=== PATIENT | male | born 1990 | race Caucasian/White ===

== ENCOUNTER 2020-10-14 21:41 | Emergency (ER) | payer BC, SELFPAY ==
[2020-10-14 21:57] VITALS: BP 111/73; BP 150/90; PULSE 118; PULSE 96; RESP 18; TEMP 36.8; O2SAT 99; BMI 26.3
--- NOTE | 2020-10-14 22:55 | ED.GENADULT ---
HPI - General Adult General Chief complaint: General Medical Stated complaint: TACHY Time Seen by Provider: 10/14/20 22:42 Source: patient Mode of arrival: ambulatory Limitations: no limitations History of Present Illness HPI narrative: Patient is a 30-year-old male no significant past medical history who is here for an episode of tachycardia. Patient states he drink take some pre workout which consist of an amino acid mix which he states he believes is a vasodilator, he was stretching and getting ready to work out when he suddenly felt like his heart was racing, he felt a little sweaty and panicked, he felt like he might pass out but he did not. 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 He states he does have a history of anxiety but has never felt this way before. He denies any thyroid issues. He denies any headache, dizziness, nausea, vomiting or diarrhea or fevers or recent illness. He does admit to excessive caffeine intake and states he probably does not drink enough water He states he does feel better since he was given the fluids and his heart is no longer racing. Related Data Allergies Allergy/AdvReac Type Severity Reaction Status Date / Time milk AdvReac Gastrointestinal Verified 10/14/20 22:06 Upset Review of Systems Review of Systems: Yes all other systems are reviewed and are negative [facility] Past Medical History Medical History Anxiety Hernia Surgical History S/P hip arthroscopy Social History Social History Advance Directives: No Advance Directives Information Provided: Yes Physical Exam Vital Signs: Vital Signs: Last Vital Signs Temp 98.2 F 10/14/20 21:57 Pulse 96 10/14/20 21:57 Resp 18 10/14/20 21:57 BP 111/73 10/14/20 21:57 Pulse Ox 99 10/14/20 21:57 Body Mass Index 26.3 Const: General: cooperative, healthy appearing, comfortable and no acute distress Nutritional Appearance: average body habitus Orientation/consciousness: patient oriented x3 Limitations: no limitations HENMT: Head: Yes normal to inspection Eyes: General: appearance normal, both eyes and all related structures Neck: Neck: Yes normal visual inspection and Yes full ROM Resp: Effort & Inspection: normal respiratory effort and able to speak in complete sentences Auscultation: clear to auscultation bilaterally Cardio: Rate: regular rate Rhythm: regular rhythm Heart sounds: normal S1 and S2 GI: Inspection: Yes normal to inspection Skin: General skin exam: no rashes or lesions noted Neuro: General: patient oriented x3 Extrem: General: Yes normal to inspection Course Course Course Narrative: Patient is a 30-year-old male no significant past medical history who is here for an episode of tachycardia, pre-syncopal, sweaty with history of anxiety, increased caffeine intake. Feeling better since being given 500mL IV fluids by EMS. Vital signs are stable upon arrival to ED. EKG shows NSR 92BPM with t wave inversion at III and aVF. Will get troponin, basic labs including TSH and a UA. Will give 1L LR. Reevaluation(s) Reevaluation #1: Patient's EKG has T-wave inversions on leads 3 and AVF, for stroke is negative, will get a 2nd troponin in 3 hours (2:15am) to verify. Discussed this with patient. 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 He states he works out on a regular basis with no problems and has never felt short of breath and had chest pain. Patient states again, he does feel much better and has no pain or complaints or feelings of his heart racing. Discussed with Dr. Johnson, he agrees with assessment and plan. Reevaluation #2: Discussed with Dr. Leo, he is okay with discharge, 2nd trope was 5.3 of those drawn a little bit early. Medical Decision Making Lab Data Lab results reviewed: Yes I reviewed the patient's lab results. Result diagrams: 10/14/20 23:17 10/14/20 23:17 Labs: Lab Results 10/14/20 10/14/20 10/14/20 Range/Units 23:17 23:17 23:17 WBC 9.0 (4.8-10.8) X10*3/uL RBC 4.91 (4.60-5.80) X10*6/uL Hgb 14.4 (14.0-18.0) g/dl Hct 41.1 L (42-52) % MCV 83.7 (80-98) fL MCH 29.3 (27.0-33.0) pg MCHC 35.0 (31.0-36.0) g/dl RDW 12.7 (11.0-16.0) % Plt Count 191 (160-400) X10*3/uL MPV 8.9 L (9.4-12.4) fL Immature Gran % (Auto) 0.3 (0.0-0.4) % Neut % (Auto) 78.0 H (45-73) % Lymph % (Auto) 13.1 L (20-40) % Humphreys % (Auto) 6.7 (2-11) % Eos % (Auto) 1.2 (0-4) % Baso % (Auto) 0.7 (0-2) % Lymph # (Auto) 1.2 (1.2-4.9) X10*3/uL Humphreys # (Auto) 0.6 (0.1-1.2) X10*3/uL Eos # (Auto) 0.1 (0.0-0.4) X10*3/uL Baso # (Auto) 0.1 (0.0-0.2) X10*3/uL Abs Immat Gran (auto) 0.03 (0.00-0.03) X10*3/uL Absolute Neuts (auto) 7.0 (2.0-8.3) X10*3/uL Absolute Nucleated RBC 0.000 (0.0-0.012) X10*3/uL Nucleated RBC % (auto) 0.0 (0.0-0.2) /100WBC PT 12.8 (9.9-13.0) SEC INR 1.1 (0.9-1.1) APTT 31.4 (24.1-38.0) SEC Sodium 141 (135-145) mmol/L Potassium 3.6 (3.3-5.1) mmol/L Chloride 106 (96-108) mmol/L Carbon Dioxide 27 (22-29) mmol/L Anion Gap 12 (12-20) BUN 21 H (9-16) mg/dL Creatinine 1.09 (0.5-1.4) mg/dL Estim Creat Clear Calc 116.2 Estimated GFR > 60 Random Glucose 102 (60-115) mg/dL Calcium 8.8 (8.4-10.2) mg/dL Troponin I High Sens (<3.5-35.0) ng/L TSH 0.88 (0.32-4.0) uIU/mL Urine Color Urine Appearance Urine pH (5.0-8.0) Ur Specific [place] (1.005-1.025) Urine Protein (NEG-TRACE) MG/DL Urine Glucose (UA) (NEG) MG/DL Urine Ketones (NEG) MG/DL Urine Blood (NEG) Urine Nitrite (NEG) Ur Leukocyte Esterase (NEG) 10/14/20 10/14/20 10/15/20 Range/Units 23:17 23:17 00:29 WBC (4.8-10.8) X10*3/uL RBC (4.60-5.80) X10*6/uL Hgb (14.0-18.0) g/dl Hct (42-52) % MCV (80-98) fL MCH (27.0-33.0) pg MCHC (31.0-36.0) g/dl RDW (11.0-16.0) % Plt Count (160-400) X10*3/uL MPV (9.4-12.4) fL Immature Gran % (Auto) (0.0-0.4) % Neut % (Auto) (45-73) % Lymph % (Auto) (20-40) % Humphreys % (Auto) (2-11) % Eos % (Auto) (0-4) % Baso % (Auto) (0-2) % Lymph # (Auto) (1.2-4.9) X10*3/uL Humphreys # (Auto) (0.1-1.2) X10*3/uL Eos # (Auto) (0.0-0.4) X10*3/uL Baso # (Auto) (0.0-0.2) X10*3/uL Abs Immat Gran (auto) (0.00-0.03) X10*3/uL Absolute Neuts (auto) (2.0-8.3) X10*3/uL Absolute Nucleated RBC (0.0-0.012) X10*3/uL Nucleated RBC % (auto) (0.0-0.2) /100WBC PT (9.9-13.0) SEC INR (0.9-1.1) APTT (24.1-38.0) SEC Sodium (135-145) mmol/L Potassium (3.3-5.1) mmol/L Chloride (96-108) mmol/L Carbon Dioxide (22-29) mmol/L Anion Gap (12-20) BUN (9-16) mg/dL Creatinine (0.5-1.4) mg/dL Estim Creat Clear Calc Estimated GFR Random Glucose (60-115) mg/dL Calcium (8.4-10.2) mg/dL Troponin I High Sens 3.7 5.3 (<3.5-35.0) ng/L TSH (0.32-4.0) uIU/mL Urine Color YELLOW Urine Appearance CLEAR Urine pH 6.0 (5.0-8.0) Ur Specific [place] 1.015 (1.005-1.025) Urine Protein NEG (NEG-TRACE) MG/DL Urine Glucose (UA) NEG (NEG) MG/DL Urine Ketones NEG (NEG) MG/DL Urine Blood NEG (NEG) Urine Nitrite NEG (NEG) Ur Leukocyte Esterase NEG (NEG) ECG Data Attestation: I personally reviewed and interpreted this ECG as follows: Interpretation: Normal sinus rhythm, 92BPM, leads II and AVF t wave inversions. signed by Dr Johnson Discharge Plan Discharge Clinical Impression: Heart palpitations Patient Disposition: Home, Self-Care Instructions: Heart Palpitations (ED), Near Syncope (ED) Additional Instructions: As discussed, is important to stay well hydrated with water and low sugar electrolyte drinks, especially if you are working out on a regular basis. It is also important to reduce your caffeine intake slowly over time to a more tolerable amount. If you find heart palpitations or continuing, you should follow-up with her primary care doctor as they may want you to wear a Holter monitor which will give us a better picture of what is going on with your heart over a longer period of time. If you experience shortness of breath or chest pain, please return to the emergency department or call 911. Referrals: Marvel Dover MD [Primary Care Provider] - 2 days (Follow-up, heart palpitations)
[2020-10-14 23:24] LABS: MANUAL DIFF FLAG NO
[2020-10-14 23:25] LABS: Basophils Absolute Auto 0.1 X10*3/uL (0.0-0.2); Basophils Percent Auto 0.7 % (0-2); Eosinophils Absolute Auto 0.1 X10*3/uL (0.0-0.4); Eosinophils Percent Auto 1.2 % (0-4); Hematocrit 41.1 % (42-52); Hemoglobin 14.4 g/dl (14.0-18.0); Imm Gran Abs Auto 0.03 X10*3/uL (0.00-0.03); Imm Gran Pct Auto 0.3 % (0.0-0.4); Lymphocytes Absolute Auto 1.2 X10*3/uL (1.2-4.9); Lymphocytes Percent Auto 13.1 % (20-40); Mean Corpuscular Hemoglobin 29.3 pg (27.0-33.0); Mean Corpuscular Volume 83.7 fL (80-98); Mean Platelet Volume 8.9 fL (9.4-12.4); Monocytes Absolute Auto 0.6 X10*3/uL (0.1-1.2); Monocytes Percent Auto 6.7 % (2-11); Platelet Count 191 X10*3/uL (160-400); Red Blood Count 4.91 X10*6/uL (4.60-5.80); Red Cell Distribution Width 12.7 % (11.0-16.0)
[2020-10-14 23:26] LABS: Appearance Urine CLEAR; Color Urine YELLOW; Glucose Urine UA NEG (NEG); Leukocyte Esterase Urine NEG (NEG); Nitrite Urine NEG (NEG); Specific Gravity - Urine 1.015 (1.005-1.025); Urine Blood NEG (NEG); Urine Ketones NEG (NEG); Urine Protein NEG (NEG-TRACE)
[2020-10-14 23:32] LABS: INTERNATIONAL NORM RATIO 1.1 (0.9-1.1); Prothrombin Time 12.8 SEC (9.9-13.0)
[2020-10-14 23:34] LABS: Partial Thromboplastin Time 31.4 SEC (24.1-38.0)
[2020-10-14 23:48] LABS: Anion Gap 12 (12-20); Blood Urea Nitrogen 21 mg/dL (9-16); Calcium 8.8 mg/dL (8.4-10.2); Carbon Dioxide 27 mmol/L (22-29); Chloride 106 mmol/L (96-108); Creatinine Clr Calc Pharmacy 116.2; Estimated Glomerular Filt Rate > 60; Glucose Random 102 mg/dL (60-115); Potassium 3.6 mmol/L (3.3-5.1); Sodium 141 mmol/L (135-145)
[2020-10-14 23:52] LABS: Troponin-I High Sensitivity 3.7 ng/L (<3.5-35.0)
[2020-10-15] VITALS: BP 144/78; PULSE 88; RESP 18; TEMP 36.8; O2SAT 98
--- NOTE | 2020-10-15 | ECG_ITS ---
Test Reason : PALPATATIONS Blood Pressure : / mmHG Vent. Rate : 092 BPM Atrial Rate : 092 BPM P-R Int : 142 ms QRS Dur : 122 ms QT Int : 378 ms P-R-T Axes : 079 081 009 degrees QTc Int : 467 ms Normal sinus rhythm Non-specific intra-ventricular conduction delay T wave abnormality, consider inferior ischemia Abnormal ECG No previous ECGs available Referred By: Gomez Hahn Electronically Signed By:John Haines
[2020-10-15 00:10] LABS: TSH reflex Free T4 0.88 uIU/mL (0.32-4.0)
[2020-10-15] MEDS: Lactated Ringers 1,000 ML 999 ML IV (00:40)
[2020-10-15 00:57] LABS: Troponin-I High Sensitivity 5.3 ng/L (<3.5-35.0)
[2020-10-15 02:00] VITALS: BP 134/82; PULSE 82; RESP 18; O2SAT 99
== END 2020-10-15 02:18 | disposition home or self-care (01) ==
PROVIDERS: Physician Assistant; Emergency Provider Internal Medicine; PCP Internal Medicine
DX: R00.2 Palpitations (principal)
CPT/HCPCS: 36415; 80048; 81003; 84443; 84484; 85025; 85610; 85730; 93005; 99284

== ENCOUNTER → 2024-08-14 15:06 | Outpatient (BNVA) | payer OTHER, SELFPAY | PROVIDERS: PCP Internal Medicine; Visit Provider Physician Assistant Medical | DX: S63.652A Sprain of metacarpophalangeal joint of right middle finger, initial encounter (principal); Y35.811A Legal intervention involving manhandling, law enforcement official injured, initial encounter | CPT/HCPCS: 73130; 99202 ==

== ENCOUNTER 2024-08-16 09:54 | Outpatient (REF) | payer OTHER, SELFPAY ==
--- NOTE | ~2024-08-16 | XR_ITS ---
EXAMINATION: XR HAND 3 OR MORE VIEWS RIGHT HISTORY: M79.641 - Pain in right hand COMPARISON: Comparison is made with the prior examination dated 08/14/2024. FINDINGS: Three views of the right hand are submitted. Osseous mineralization is normal. There is no fracture or dislocation. The joint spaces are preserved. The soft tissues are unremarkable. XR/XR hand RT min 3V IMPRESSION: Unremarkable examination of the right hand. Electronically signed by: Tyler Jose MD 08/17/2024 08:08 AM EDT
== END 2024-08-16 09:55 | disposition home or self-care (01) ==
LOC: HO.HOSX 09:54
DX: M79.641 Pain in right hand (principal); S63.659A Sprain of metacarpophalangeal joint of unspecified finger, initial encounter
CPT/HCPCS: 73130; 99202

== ENCOUNTER 2024-08-16 13:52 | Outpatient (AMB) | payer OTHER, SELFPAY ==
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
[2024-08-16 14:13] VITALS: BMI 26.3
== END 2024-08-16 14:43 | disposition home or self-care (01) ==
PROVIDERS: PCP Internal Medicine
DX: S63.659A Sprain of metacarpophalangeal joint of unspecified finger, initial encounter (principal)
CPT/HCPCS: 99203

== ENCOUNTER → 2024-08-16 13:54 | Outpatient (BNV) | payer OTHER, SELFPAY | PROVIDERS: Visit Provider Radiology Diagnostic Radiology | DX: M79.641 Pain in right hand (principal) | CPT/HCPCS: 73130 ==

== ENCOUNTER 2024-08-29 09:38 | Outpatient (AMB) | payer OTHER, SELFPAY ==
[2024-08-29 09:53] VITALS: BMI 26.3
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
== END 2024-08-29 11:00 | disposition home or self-care (01) ==
LOC: HO.HOS 09:39
PROVIDERS: Visit Provider Orthopaedic Surgery
DX: S63.652A Sprain of metacarpophalangeal joint of right middle finger, initial encounter (principal)
CPT/HCPCS: 99214

== ENCOUNTER → 2024-08-29 09:38 | Outpatient (BNVA) | payer OTHER, BC, SELFPAY | PROVIDERS: Visit Provider Orthopaedic Surgery | DX: S63.650A Sprain of metacarpophalangeal joint of right index finger, initial encounter (principal) | CPT/HCPCS: 99212 ==

== ENCOUNTER 2024-08-31 07:08 | Outpatient (RCR) | payer OTHER, SELFPAY ==
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
--- NOTE | 2024-11-07 08:59 | MHC.OT.DC ---
[facility] Office [address] [phone] F: [phone] F: [phone] Occupational Therapy Discharge Note Patient Name: Shaan Garcia Provider: Shital Hernandez MD Diagnosis: Right Middle Finger Sagittal Band Injury Date of Evaluation: 08/31/24 Date of Discharge: 11/07/24 Treatments to Date: 1 Discharge Summary: 34 yo male was seen for initial OT eval and treatment of sagittal band injury. We fabricated two MCP block orthosis and educated on wear and healing timeline. We have not heard back for follow-up visits after over two months and will be discharging at this time. Electronically Signed By: Giovana Sierra OTR/Kadeem CHT Please Sign and return to therapist, thank you for your referral.
== END 2024-11-07 08:59 | disposition home or self-care (01) ==
LOC: HO.OT 07:08
PROVIDERS: Visit Provider Orthopaedic Surgery
DX: S63.652A Sprain of metacarpophalangeal joint of right middle finger, initial encounter (principal); Y04.2XXA Assault by strike against or bumped into by another person, initial encounter
CPT/HCPCS: 29130; 97165; 97760